=== PATIENT | male | born 1985 | race Caucasian/White ===

== ENCOUNTER → 2019-08-11 | Outpatient (CLI) | payer OTHER, SELFPAY ==
[2019-08-11 12:35] LABS: BASOPHIL % 0.5 % (0.0-0.2); EOSINOPHIL # 0.5 10^3/uL (0.0-0.2); EOSINOPHIL % 5.9 % (0.0-5.0); LYMPHOCYTES # 1.36 10^3/uL1 (1.0-4.8); LYMPHOCYTES % 16.7 % (24.0-44.0); MEAN CORP HGB 28.1 pg (26-34); MONOCYTES # 0.7 10^3/uL (0.3-0.8); NEUTROPHIL # 5.5 10^3/uL (1.8-7.7); NEUTROPHILS % 67.9 % (41.0-85.0); RED CELL DISTRIBUTION WIDTH 12.5 % (11.5-14.5)
== END | disposition home or self-care (01) ==
LOC: LAB 08:00 → EDSTATUS 08-12 09:15
PROVIDERS: ATTEND Urology
DX: Z30.2 Encounter for sterilization (principal)
CPT/HCPCS: 36415; 85025; 85610; 85730